=== PATIENT | male | born 1975 | race Caucasian/White ===

== ENCOUNTER 2021-06-17 17:53 | Emergency (ER) | payer BC ==
[~2021-06-17] VITALS: Ht 188 cm; Wt 113.4 kg
[2021-06-17 18:30] LABS: BASOPHILS % (AUTO) 0.5 % (0.0-5.0); EOSINOPHILS % (AUTO) 2.8 % (0.0-8.0); HEMATOCRIT 47.1 % (42-54); LYMPHOCYTES % (AUTO) 13.8 % (21.0-51.0); MEAN CORPUSCULAR HEMOGLOBIN 32.9 pg (27.0-33.0); MEAN CORPUSCULAR HGB CONC 33.5 g/dL (32.0-36.0); MEAN CORPUSCULAR VOLUME 98.1 fL (79-99); NEUTROPHILS % (AUTO) 71.5 % (40.0-77.0); PLATELET COUNT (AUTO) 202 K/uL (130-400); RED CELL DISTRIBUTION WIDTH 12.4 % (11.0-15.5); WHITE BLOOD COUNT (AUTO) 10.1 K/uL (4.8-10.8)
[2021-06-17] MEDS ORDERED: ASPIRIN 325MG TAB PO ONE (18:30)
[2021-06-17] MEDS ORDERED: ALBUTEROL INHALER 90MCG/INH IH PRN (18:30)
[2021-06-17] MEDS ORDERED: DEXAMETHASONE 4 MG TAB PO SCH (18:30)
[2021-06-17] MEDS ORDERED: CYCLOBENZAPRINE HCL 10 MG TABLET PO ONE (18:30)
[2021-06-17] MEDS ORDERED: HYDROCODONE/ACETAMINOPHEN 10/325 MG TAB PO ONE (18:30)
[2021-06-17] MEDS ORDERED: ALBUTEROL INHALER 90MCG/INH IH ONE (18:37)
[2021-06-17] MEDS ORDERED: DEXAMETHASONE 4 MG TAB ONE (18:37)
[2021-06-17] MEDS ORDERED: CYCLOBENZAPRINE HCL 10 MG TABLET ONE (18:38)
[2021-06-17] MEDS ORDERED: HYDROCODONE/ACETAMINOPHEN 10/325 MG TAB ONE (18:38)
[2021-06-17 18:42] LABS: APPEARANCE,URINE Clear (CLEAR); BILIRUBIN,URINE Negative (NEGATIVE); COLOR,URINE Yellow (YELLOW); GLUCOSE, URINE (UA) Negative (NEGATIVE); KETONES,URINE Negative (NEGATIVE); LEUKOCYTE ESTERASE ,URINE Negative (NEGATIVE); NITRATE,URINE Negative (NEGATIVE); OCCULT BLOOD,URINE Negative (NEGATIVE); PH,URINE 5.5 (5.0-8.0); PROTEIN,URINE Negative (NEGATIVE)
[2021-06-17 18:50] LABS: AMPHET/METH SCREEN,URINE NEGATIVE (NEGATIVE); BARBITURATE SCREEN, URINE NEGATIVE (NEGATIVE); BENZODIAZEPINES SCREEN,URINE NEGATIVE (NEGATIVE); CANNABINOID SCREEN,URINE NEGATIVE (NEGATIVE); COCAINE SCREEN,URINE NEGATIVE (NEGATIVE); OPIATE SCREEN,URINE NEGATIVE (NEGATIVE); PHENCYCLIDINE SCREEN,URINE NEGATIVE (NEGATIVE)
[2021-06-17 18:53] LABS: CREATININE 0.7 mg/dL (0.5-1.5); POTASSIUM 4.2 mmol/L (3.5-5.1)
[2021-06-17 18:54] LABS: B-TYPE NATRIURETIC PEPTIDE 23 pg/mL (0-100)
[2021-06-17 19:05] LABS: BILIRUBIN,TOTAL 0.3 mg/dL (0.2-1.0); TOTAL PROTEIN, SERUM 7.3 g/dL (6.0-8.3)
[2021-06-17] MEDS ORDERED: AMOX/CLAV 875/125MG TAB PO ONE (19:30)
[2021-06-17] MEDS ORDERED: ALBU8.5H8 IH (19:53)
[2021-06-17] MEDS ORDERED: NAPR-1180 PO (19:53)
[2021-06-17] MEDS ORDERED: CYCL10TA16 PO (19:53)
[2021-06-17] MEDS ORDERED: PRED20TA3 PO (19:53)
[2021-06-17] MEDS ORDERED: AMOX-429 PO (19:53)
[2021-06-17 20:08] VITALS: BP 151/75
== END 2021-06-17 20:16 | disposition home or self-care (01) ==
LOC: EDH 17:53
DX: J40 Bronchitis, not specified as acute or chronic (principal); M94.0 Chondrocostal junction syndrome [Tietze]; Z20.822 Contact with and (suspected) exposure to COVID-19; I11.0 Hypertensive heart disease with heart failure; I50.9 Heart failure, unspecified; I25.10 Atherosclerotic heart disease of native coronary artery without angina pectoris; Z86.718 Personal history of other venous thrombosis and embolism
CPT/HCPCS: 36415; 71045; 80053; 80305; 81003; 83880; 84484; 85025; 85378; 86140; 87635; 93005; 99284; C9803; J8540